=== PATIENT | female | born 1940 | race Caucasian/White ===

== ENCOUNTER 2020-07-28 10:24 | Inpatient (IN) ==
[2020-07-28 11:12] LABS: Basophils % 0.3 % (0.0-0.8); Hematocrit 38.4 VOL% (35.7-47.0); Hemoglobin 12.3 GM/DL (12.0-16.0); Immature Granulocytes % 0.4 %; Immature Granulocytes Absolute 0.05 #; Lymphocytes # 0.3 10*3/uL (1.4-4.0); Lymphocytes % 2.3 % (21.3-54.2); Mean Corpuscular Volume 91.9 FL (87-102); Mean Platelet Volume 12.2 FL (9.6-12.0); Monocytes % 3.9 % (1.7-12.7); NRBC # 0.04 10*3/uL; Neutrophils % 93.1 % (38.7-73.9); Platelet Count 100 T/CUMM (130-400); Red Blood Count 4.18 MC/CUMM (3.8-5.5); Red Cell Distribution Width 15.7 % (9.3-17.3); White Blood Count 11.4 T/CUMM (4-12)
[2020-07-28] MEDS ORDERED: SODIUM CHLORIDE 0.9% 1,000 ML IV STA (11:15)
[2020-07-28] MEDS ORDERED: ONDANSETRON 4 MG/2 ML VIAL IV STA (11:15)
[2020-07-28 11:30] LABS: Band Neutrophils 3 % (0-10); Lymphocytes 2 % (20-55); Nucleated Red Blood Cells 1 (0-5); Segmented Neutrophils 92 % (50-85); Total Cells Counted 100
[2020-07-28] MEDS ORDERED: SODIUM CHLORIDE 0.9% 1,500 ML IV ONE (11:40)
[2020-07-28 11:45] LABS: Albumin 2.9 G/DL (3.4-5.0); Bilirubin,Total 1.8 MG/DL (0.2-1.0); Calcium 8.2 MG/DL (8.5-10.1); Osmolality,Calculated 286.8 MOS/KG (273-304); Potassium 3.3 MMOL/L (3.5-5.1); Total Protein 6.6 G/DL (6.4-8.2)
[2020-07-28 12:07] LABS: Amorphous Crystals,Urine Few /HPF (Few); Bilirubin,Urine Negative (Negative); Blood, Urine Large mg/dL (Negative); Glucose,Urine (UA) Negative (Negative); Ketones,Urine Negative (Negative); Mucus,Urine Occasional /LPF (Occasional); Nitrite,Urine Negative (Negative); Protein,Urine 100 MG/DL; RBC,Urine 8 /HPF (0-4); Red Blood Cell Casts,Urine 141 /LPF (<1); Squamous Epithelial Cell,Urine Occasional /HPF (0-10); Urine Appearance CLOUDY (Clear); Urine Color Amber (Yellow); Urine Specific Gravity 1.013 (1.001-1.035); WBC,Urine 21 /HPF (0-6)
[2020-07-28] MEDS ORDERED: PIPERACILLIN/TAZOBACTAM 3,375 MG in SODIUM CHLORIDE 0.9% 100 ML IV STA (12:17)
[2020-07-28] MEDS ORDERED: VANCOMYCIN INJ 750 MG in SODIUM CHLORIDE 0.9% 250 ML IV STA (12:17)
[2020-07-28] MEDS ORDERED: ONDANSETRON 4 MG/2 ML VIAL IV PRN (13:24)
[2020-07-28] MEDS ORDERED: NITROGLYCERIN SL 0.4 MG TABLET SL PRN (13:31)
[2020-07-28] MEDS ORDERED: MECLIZINE 25 MG TABLET PO PRN (13:31)
[2020-07-28] MEDS ORDERED: PROMETHAZINE 25 MG TABLET PO PRN (13:33)
[2020-07-28] MEDS ORDERED: LACTATED RINGERS 2,000 ML IV ONE (13:34)
[2020-07-28] MEDS ORDERED: LACTATED RINGERS 1,000 ML IV ONE (13:35)
[2020-07-28 13:51] LABS: INR 1.7; PT Patient Result 17.4 SECS (9.8-11.9); Partial Thromboplastin Time 38.5 SECS (23.9-33.8)
[2020-07-28] MEDS: PANTOPRAZOLE 40 MG VIAL IV SCH (14:40)
[2020-07-28] MEDS: SODIUM BICARB INJ 150 MEQ in DEXTROSE 5% 850 ML IV SCH (15:14)
[2020-07-28 15:25] LABS: CKMB % 0.7 %
[2020-07-28 15:29] LABS: Troponin I 4.53 NG/ML (0.00-0.045)
[2020-07-28] MEDS ORDERED: cefTRIAXone 1,000 MG in SYRINGE 1 EACH IV SCH (15:30)
[2020-07-28] MEDS: metroNIDAZOLE INJ 500 MG in PREMIX 1 EACH IV SCH (15:44)
[2020-07-28 19:11] LABS: CKMB % 0.6 %
[2020-07-28 19:15] LABS: Troponin I 7.08 NG/ML (0.00-0.045)
[2020-07-28 19:32] LABS: Bacteria,Urine Occasional /HPF (Few); Bilirubin,Urine Negative (Negative); Blood, Urine Large mg/dL (Negative); Glucose,Urine (UA) Negative (Negative); Ketones,Urine Negative (Negative); Nitrite,Urine Negative (Negative); Protein,Urine 100 MG/DL; RBC,Urine 2 /HPF (0-4); Urine Appearance CLOUDY (Clear); Urine Color Amber (Yellow); Urine Specific Gravity 1.013 (1.001-1.035); Urine Urobilinogen < 2.0 EU/DL (0.2-1.0); WBC,Urine 4 /HPF (0-6)
[2020-07-28] MEDS ORDERED: NOREPINEPHRINE 8 MG in SODIUM CHLORIDE 0.9% 242 ML IV PRN (20:17)
[2020-07-28] MEDS ORDERED: NOREPINEPHRINE 4 MG/4 ML VIAL IV ONE (20:19)
[2020-07-28] MEDS: HEPARIN DRIP 25,000 UNITS/500 ML PREMIX IV SCH (20:51)
[2020-07-28] MEDS ORDERED: ROSUVASTATIN 20 MG TABLET PO SCH (21:00)
[2020-07-28] MEDS ORDERED: APIXABAN 5 MG TABLET PO SCH (21:00)
[2020-07-28 21:09] LABS: ABG Base Excess -6.6 MMOL/L (-2.5-2.5); ABG HCO3 15.3 MMOL/L (20-26); ABG Oxygen Saturation 97.5 % (95-100); ABG PCO2 21.7 MM HG (35-48); ABG PH 7.465 (7.35-7.45); ABG PO2 97.8 MM HG (80-95); ABG TCO2 15.9 MMOL/L (23-27)
[2020-07-28 21:22] LABS: Calcium 6.6 MG/DL (8.5-10.1); Osmolality,Calculated 298.1 MOS/KG (273-304); Potassium 3.2 MMOL/L (3.5-5.1)
[2020-07-28] MEDS: CALCIUM (CITRATE)/VITAMIN D 200 MG-125 UNIT TABLET PO SCH (23:12)
[2020-07-29 00:19] LABS: ABG Base Excess -6.4 MMOL/L (-2.5-2.5); ABG HCO3 19.2 MMOL/L (20-26); ABG Oxygen Saturation 95.7 % (95-100); ABG PCO2 26.2 MM HG (35-48); ABG PH 7.417 (7.35-7.45); ABG PO2 77.4 MM HG (80-95); ABG TCO2 15.1 MMOL/L (23-27)
[2020-07-29] MEDS: PHENYLEPHRINE DRIP 40 MG/250 ML PREMIX IV PRN ×3 (00:31→06:45)
[2020-07-29] MEDS: metroNIDAZOLE INJ 500 MG in PREMIX 1 EACH IV SCH (00:31)
[2020-07-29 02:06] LABS: Calcium 6.9 MG/DL (8.5-10.1); Osmolality,Calculated 296.3 MOS/KG (273-304); Total Protein 4.8 G/DL (6.4-8.2)
[2020-07-29 02:16] LABS: CKMB % 0.5 %
[2020-07-29 02:21] LABS: Troponin I 11.4 NG/ML (0.00-0.045)
[2020-07-29 03:29] LABS: ABG Base Excess -8.2 MMOL/L (-2.5-2.5); ABG HCO3 17.7 MMOL/L (20-26); ABG Oxygen Saturation 95.4 % (95-100); ABG PCO2 26.4 MM HG (35-48); ABG PO2 80.3 MM HG (80-95); ABG TCO2 14.1 MMOL/L (23-27)
[2020-07-29] MEDS ORDERED: POTASSIUM CHLORIDE RIDER 20 MEQ in PREMIX 1 EACH IV ONE (03:32)
[2020-07-29 03:33] LABS: Basophils % 0.2 % (0.0-0.8); Hematocrit 32.5 VOL% (35.7-47.0); Hemoglobin 10.8 GM/DL (12.0-16.0); Immature Granulocytes % 1.9 %; Immature Granulocytes Absolute 0.31 #; Lymphocytes # 0.7 10*3/uL (1.4-4.0); Lymphocytes % 4.2 % (21.3-54.2); Mean Corpuscular HGB Conc 33.2 GM/DL (32-36); Mean Corpuscular Volume 88.3 FL (87-102); Mean Platelet Volume 11.9 FL (9.6-12.0); Monocytes % 8.7 % (1.7-12.7); NRBC # 0.08 10*3/uL; Platelet Count 102 T/CUMM (130-400); Red Blood Count 3.68 MC/CUMM (3.8-5.5); Red Cell Distribution Width 15.8 % (9.3-17.3); White Blood Count 16.6 T/CUMM (4-12)
[2020-07-29 03:49] LABS: Calcium 6.6 MG/DL (8.5-10.1); Osmolality,Calculated 299.1 MOS/KG (273-304); Potassium 3.2 MMOL/L (3.5-5.1)
[2020-07-29] MEDS: SODIUM BICARB INJ 150 MEQ in DEXTROSE 5% 850 ML IV SCH ×3 (04:00→18:00)
[2020-07-29 04:05] LABS: Band Neutrophils 2 % (0-10); Lymphocytes 4 % (20-55); Nucleated Red Blood Cells 1 (0-5); Platelet Estimate Adequate; Segmented Neutrophils 91 % (50-85); Total Cells Counted 100
[2020-07-29 04:06] LABS: Anisocytosis 1+; Ovalocytes Few
[2020-07-29 04:07] LABS: Burr Cells Few; Hypochromasia Slight; Microcytosis 1+
[2020-07-29 04:08] LABS: Polychromasia Slight
[2020-07-29] MEDS ORDERED: SODIUM CHLORIDE 0.9% 500 ML IV ONE (04:57)
[2020-07-29] MEDS ORDERED: VANCOMYCIN INJ 750 MG in SODIUM CHLORIDE 0.9% 250 ML IV PRN (05:18)
[2020-07-29] MEDS: PIPERACILLIN/TAZOBACTAM 3,375 MG in SODIUM CHLORIDE 0.9% 100 ML IV SCH ×2 (05:37→18:01)
[2020-07-29 05:51] LABS: INR 4.7; PT Patient Result 46.6 SECS (9.8-11.9)
[2020-07-29] MEDS ORDERED: VANCOMYCIN INJ 750 MG in SODIUM CHLORIDE 0.9% 250 ML IV ONE (06:00)
[2020-07-29 06:10] LABS: Partial Thromboplastin Time > 211.8 SECS (23.9-33.8)
[2020-07-29] MEDS ORDERED: LEVOTHYROXINE 25 MCG TABLET PO SCH (07:00)
[2020-07-29] MEDS ORDERED: MIDAZOLAM 2 MG/2 ML VIAL IV ONE (07:57)
[2020-07-29] MEDS ORDERED: MIDAZOLAM 100 MG in SODIUM CHLORIDE 0.9% 80 ML IV PRN (07:57)
[2020-07-29] MEDS ORDERED: MIDAZOLAM 2 MG/2 ML VIAL ONE (07:59)
[2020-07-29] MEDS ORDERED: LACTATED RINGERS 1,000 ML IV ONE (08:03)
[2020-07-29] MEDS: NOREPINEPHRINE 16 MG in SODIUM CHLORIDE 0.9% 234 ML IV PRN ×2 (08:30→20:04)
[2020-07-29] MEDS: PHENYLEPHRINE INJ 160 MG in SODIUM CHLORIDE 0.9% 234 ML IV PRN ×2 (08:30→17:00)
[2020-07-29 08:46] LABS: Albumin 2.2 G/DL (3.4-5.0); Bilirubin,Direct 1.78 MG/DL (0.0-0.20); Bilirubin,Indirect 0.4 MG/DL (0.0-1.0); Bilirubin,Total 2.2 MG/DL (0.2-1.0); Total Protein 4.8 G/DL (6.4-8.2)
[2020-07-29] MEDS ORDERED: SERTRALINE 50 MG TABLET PO SCH (09:00)
[2020-07-29] MEDS ORDERED: CLOPIDOGREL 75 MG TABLET PO SCH (09:00)
[2020-07-29] MEDS: CALCIUM (CITRATE)/VITAMIN D 200 MG-125 UNIT TABLET PO SCH ×2 (09:26→21:49)
[2020-07-29 11:42] LABS: ABG Base Excess -15.6 MMOL/L (-2.5-2.5); ABG HCO3 12.5 MMOL/L (20-26); ABG Oxygen Saturation 98.8 % (95-100); ABG PCO2 25.8 MM HG (35-48); ABG TCO2 10.1 MMOL/L (23-27)
[2020-07-29] MEDS ORDERED: SODIUM BICARBONATE 50 MEQ/50 ML VIAL IV ONE (11:48)
[2020-07-29] MEDS: PANTOPRAZOLE 40 MG VIAL IV SCH (14:16)
[2020-07-29 16:04] VITALS: BP 106/37
[2020-07-29] MEDS ORDERED: EPINEPHrine 1 MG/ML VIAL ONE (20:41)
[2020-07-29] MEDS: HEPARIN DRIP 25,000 UNITS/500 ML PREMIX IV SCH (20:49)
== END 2020-07-30 00:45 | disposition expired | DRG 871 ==
LOC: N.ED 10:24 → N.EDINP 13:24 → N.ICU 16:16
PROVIDERS: ADMIT Family Medicine; ATTEND Family Medicine